=== PATIENT | male | born 1970 | race Caucasian/White ===

== ENCOUNTER 2016-07-25 15:28 | Emergency (ER) | payer MEDICAID ==
[2016-07-25] MEDS ORDERED: MORPHINE 4 MG/ML SYR ONE (16:34)
[2016-07-25] MEDS ORDERED: KETOROLAC 60 MG/2 ML VIAL IM ONE (17:13)
== END 2016-07-25 17:42 | disposition home or self-care (01) ==
LOC: FASTR 15:28
CPT/HCPCS: 84484; 93005; 96372